=== PATIENT | male | born 1950 | race Two or more races ===

== ENCOUNTER 2017-03-18 10:36 | Inpatient (IN) | payer SELFPAY ==
[~2017-03-18] VITALS: Ht 167.6 cm; Wt 74.6 kg
--- NOTE | 2017-03-18 10:36 | NUR ---
BBRA 102 FROM [facility] FOR NAUSEA/VOMITING SINCE THIS AM. PER PT VOMITED X 5 TIMES TODAY. RR EVEN AND UNLABORED. DR DHALIWAL AT BEDSIDE FOR EVAL.
[2017-03-18] MEDS ORDERED: ONDANSETRON HCL/PF 4 MG/2 ML VIAL ONE (10:55)
[2017-03-18] MEDS ORDERED: ASPIRIN 325 MG TABLET ONE (10:55)
[2017-03-18] MEDS ORDERED: ASPIRIN 325 MG TABLET PO ONE (11:00)
[2017-03-18] MEDS ORDERED: ONDANSETRON HCL/PF 4 MG/2 ML VIAL IVP ONE (11:00)
--- NOTE | 2017-03-18 11:00 | NUR ---
EKG IN PROGRESS
[2017-03-18 11:22] LABS: BASOPHILS % (AUTO) 0.3 % (0.0-2.0); EOSINOPHILS # (AUTO) 0.2 /CMM (0.0-0.7); EOSINOPHILS % (AUTO) 2.2 % (0.0-6.0); HEMATOCRIT 45 % (39-51); HEMOGLOBIN 14.8 g/dL (13.5-17.5); LYMPHOCYTES % (AUTO) 26.5 % (20.0-44.0); MEAN CORPUSCULAR HEMOGLOBIN 31 PG (26.0-33.0); MEAN CORPUSCULAR HGB CONC 33 g/dl (31.0-36.0); MEAN CORPUSCULAR VOLUME 92 fL (80-96); MONOCYTES # (AUTO) 0.5 /CMM (0.1-1.30); MONOCYTES % (AUTO) 7.1 % (2.0-12.0); NEUTROPHILS # (AUTO) 4.9 /CMM (1.8-8.9); NEUTROPHILS % (AUTO) 63.9 % (43.0-81.0); PLATELET COUNT (AUTO) 210 /CMM (150-450); RDW COEFFICIENT OF VARIATION 11.4 (11.5-15.0); RED BLOOD CELL COUNT(AUTO) 4.84 MIL/uL (4.5-6.0); WHITE BLOOD COUNT (AUTO) 7.6 K/uL (4.3-11.0)
[2017-03-18 11:31] LABS: CALCIUM, SERUM 8.4 mg/dL (8.5-10.1); CARBON DIOXIDE 26 mmol/L (21-32); CHLORIDE 106 mmol/L (98-107); CREATININE 0.9 mg/dL (0.6-1.3); GLUCOSE 143 mg/dL (74-106); POTASSIUM 3.6 mmol/L (3.5-5.1); SODIUM SERUM 142 mmol/L (136-145); UREA NITROGEN, BLOOD 9 mg/dL (7-18)
[2017-03-18 11:34] LABS: INR 1.03 (0.87-1.13); PROTHROMBIN TIME 10.7 SECS (9.5-12.7)
[2017-03-18 11:40] LABS: TROPONIN I < 0.017 ng/mL (0.00-0.056)
[2017-03-18 11:44] LABS: ALANINE AMINOTRANSFERASE 18 U/L (12-78); ALBUMIN 3.9 g/dL (3.4-5.0); ALKALINE PHOSPHATASE 58 U/L (46-116); ASPARTATE AMINOTRANSFERASE 22 U/L (15-37); B-TYPE NATRIURETIC PEPTIDE 151 PG/ML (0-125); BILIRUBIN,DIRECT 0.1 mg/dL (0.0-0.2); BILIRUBIN,TOTAL 1.1 mg/dL (0.2-1.0); TOTAL PROTEIN, SERUM 7.5 g/dL (6.4-8.2)
[2017-03-18] MEDS ORDERED: PROMETHAZINE HCL 25 MG/ML AMPUL ONE (12:05)
--- NOTE | 2017-03-18 12:09 | NUR ---
VERBAL ORDER FROM DR MADHURI JEONG 12.5 IVP GIVEN
--- NOTE | 2017-03-18 12:26 | NUR ---
PT BACK FROM CT
--- NOTE | 2017-03-18 13:15 | NUR ---
PAGED DR ARCE FOR PANEL ADMISSION
[2017-03-18] MEDS ORDERED: FUROSEMIDE 40 MG/4 ML VIAL ONE (13:16)
[2017-03-18] MEDS ORDERED: FUROSEMIDE 40 MG/4 ML VIAL IV ONE (13:30)
--- NOTE | 2017-03-18 13:50 | NUR ---
REPORT GIVEN TO HAYES BRIANPAPER BUNDLER DR ARCE ADMITTING DX CHF DIZZINESS AND VOMITING. TRANSFER VIA ACLS PROTOCOL.
[2017-03-18] MEDS ORDERED: Z GUARD REMEDY 2 OZ OINT TP PRN (14:00)
[2017-03-18] MEDS ORDERED: MAGNESIUM HYDROXIDE 30 ML UDC PO PRN (14:00)
[2017-03-18] MEDS ORDERED: HYDROCODONE/APAP 5/325MG 1 EACH TABLET PO PRN (14:00)
[2017-03-18] MEDS ORDERED: PANTOPRAZOLE 40 MG VIAL IV SCH (14:00)
[2017-03-18] MEDS ORDERED: ONDANSETRON HCL/PF 4 MG/2 ML VIAL IVP PRN (14:00)
[2017-03-18] MEDS ORDERED: MAG HYDROX/AL HYDROX/SIMETH 30 ML UDC PO PRN (14:00)
[2017-03-18] MEDS ORDERED: ACETAMINOPHEN 325 MG TABLET PO PRN (14:00)
[2017-03-18] MEDS ORDERED: MECLIZINE HCL 12.5 MG TABLET PO ONE (14:00)
[2017-03-18] MEDS ORDERED: ZOLPIDEM TARTRATE 5 MG TABLET PO PRN (14:00)
[2017-03-18] MEDS ORDERED: PROMETHAZINE HCL 25 MG/ML AMPUL IV ONE (14:00)
--- NOTE | 2017-03-18 14:15 | NUR ---
COVER OPERATOR NOTES RECEIVED PATIENT VERBALLY RESPONSIVE, IN NO APPARENT DISTRESS. DENIES PAIN, COMPLAINING OF DIZZINESS.IV LINE ON RIGHT WRIST PATENT. NO SKIN ALTERATIONS NOTED, ALL NEEDS MET, ORIENTED TO ROOM AND UNIT, CALL LIGHT WITHIN REACH. PATIENTS BELONGINGS LIST REVIEWED, PER PATIENT HE IS MISSING A WHITE T SHIRT. CALLED ER, SHIRT NOT ON THE ROOM PATIENT STATES ITS OK IF HE DOESN'T HAVE THE SHIRT.
[2017-03-18] MEDS: IV NS 0.9% 1,000 ML IV PRN (14:42)
[2017-03-18] MEDS: PANTOPRAZOLE 40 MG TABLET.DR PO SCH (14:43)
[2017-03-18 16:00] VITALS: BP 146/65
--- NOTE | 2017-03-18 18:49 | NUR ---
SIGHT MOUNTER CLOSING NOTES PATIENT IN BED, VERBALLY RESPONSIVE,NO APPARENT DISTRESS NOTED. PATIENT DENIES PAIN, DENIES DIZZINESS. ON 2L O2 VIA NC, DENIES SOB AT THIS TIME. ON TELE MONITORING SR 68. IV LINE ON LEFT HAND PATENT, INFUSING NS AT 75ML/HR. ALL DUE MEDS GIVEN, ALL NEEDS MET. WILL ENDORSE CARE TO PM SHIFT.
[2017-03-18 20:00] VITALS: BP 136/69
--- NOTE | 2017-03-18 20:00 | NUR ---
BASKET MAKER NOTE PT IN BED AWAKE. A/O X 3, NO SOB, NO DISTRESS OR DISCOMFORT NOTED. DENIES PAIN. IVF NS @ 75 ML/HR INFUSING WELL. NO S/S OF INFILTRATION NOTED. ON TELE SR WITH BBB HR 66. PT DENIES ANY N/V AT THIS TIME. AMBULATED IN HALLWAY WITH STEADY GAIT. ALL NEEDS ATTENDED. SIDE RAILS UP X 2 AND CALL LIGHT WITHIN REACH. CONTINUE TO MONITOR HIM. VSS.
[2017-03-18] MEDS ORDERED: ENOXAPARIN SODIUM 40 MG/0.4 ML DISP.SYRIN SQ SCH (21:00)
[2017-03-19] VITALS: BP 141/68
[2017-03-19 04:00] VITALS: BP 127/65
--- NOTE | 2017-03-19 04:00 | NUR ---
LIQUOR GRINDING MILL OPERATOR NOTE PT IN BED ASLEEP, AROUSABLE. NO DISTRESS OR DISCOMFORT NOTED. IVF INFUSING WELL, NO S/S OF INFILTRATION NOTED.
[2017-03-19] MEDS: IV NS 0.9% 1,000 ML IV PRN (04:24)
--- NOTE | 2017-03-19 06:39 | NUR ---
COMMERCIAL FLOOR COVERING INSTALLER NOTE PT IN BED ASLEEP, AROUSABLE. NO DISTRESS OR DISCOMFORT NOTED. NO S/S OF PAIN NOTED. IVF INFUSING WELL, NO S/S OF INFILTRATION NOTED. SIDE RAILS UP X 2 AND CALL LIGHT WITHIN REACH. ON TELE SB WITH BBB HR 58. WILL ENDORSE TO DAY SHIFT NURSE FOR CONTINUE TO CARE.
[2017-03-19 07:23] LABS: ALBUMIN 3.4 g/dL (3.4-5.0); BILIRUBIN,TOTAL 1.4 mg/dL (0.2-1.0); CALCIUM, SERUM 8.6 mg/dL (8.5-10.1); CREATININE 0.9 mg/dL (0.6-1.3); MAGNESIUM 1.8 mg/dL (1.8-2.4); PHOSPHORUS 3.5 mg/dL (2.5-4.9); POTASSIUM 3.9 mmol/L (3.5-5.1); TOTAL PROTEIN, SERUM 6.7 g/dL (6.4-8.2)
[2017-03-19 07:27] LABS: BASOPHILS % (AUTO) 0.4 % (0.0-2.0); EOSINOPHILS # (AUTO) 0.1 /CMM (0.0-0.7); EOSINOPHILS % (AUTO) 1.4 % (0.0-6.0); HEMATOCRIT 43 % (39-51); HEMOGLOBIN 14.6 g/dL (13.5-17.5); LYMPHOCYTES # (AUTO) 2.3 /CMM (0.8-4.8); LYMPHOCYTES % (AUTO) 25.7 % (20.0-44.0); MEAN CORPUSCULAR HEMOGLOBIN 32 PG (26.0-33.0); MEAN CORPUSCULAR HGB CONC 34 g/dl (31.0-36.0); MEAN CORPUSCULAR VOLUME 92 fL (80-96); MONOCYTES # (AUTO) 0.6 /CMM (0.1-1.30); MONOCYTES % (AUTO) 6.8 % (2.0-12.0); NEUTROPHILS % (AUTO) 65.7 % (43.0-81.0); PLATELET COUNT (AUTO) 171 /CMM (150-450); RDW COEFFICIENT OF VARIATION 12.3 (11.5-15.0); RED BLOOD CELL COUNT(AUTO) 4.61 MIL/uL (4.5-6.0); WHITE BLOOD COUNT (AUTO) 9.1 K/uL (4.3-11.0)
[2017-03-19 07:29] LABS: THYROID STIMULATING HORMONE 1.041 uIU/mL (0.358-3.74)
--- NOTE | 2017-03-19 07:44 | NUR ---
RN NOTES RECEIVED PT. PT IS STABLE AND SLEEPING IN BED. A/0 X3. PT IS ON O2 VIA NC AT 2L/MIN. TELE MONITOR READS SR AT 66BPM. IV ACCESS LOCATED ON LEFT HAND 18G, RUNNING NS AT 75 ML/HR. SAFETY MEASURES IN PLACE, CALL LIGHT WITHIN REACH. WILL CONTINUE TO MONITOR.
[2017-03-19 08:00] VITALS: BP 136/76
[2017-03-19] MEDS: PANTOPRAZOLE 40 MG TABLET.DR PO SCH (09:00)
[2017-03-19 12:00] VITALS: BP 146/71
--- NOTE | 2017-03-19 12:15 | NUR ---
RN NOTE CALLED DR. ARCE WITH THE 2D ECHO RESULTS FOR PT. DR. ARCE INFORMED.
[2017-03-19 16:00] VITALS: BP 125/69
--- NOTE | 2017-03-19 18:49 | NUR ---
DISCHARGE NOTE PT STABLE. DISCHARGE INSTRUCTIONS PROVIDED, UNDERSTOOD AND VERIFIED THROUGH READ BACK. PRESCRIPTION GIVEN TO PATIENT. IV ACCESS REMOVED. DISCHARGE INSTRUCTIONS SIGNED. PT UNDERSTANDS TO FOLLOW UP WITH PRIMARY PHYSICIAN IN 7 DAYS.
== END 2017-03-19 18:50 | disposition home or self-care (01) | DRG 73 ==
LOC: ER 10:39 → TELE 13:58
PROVIDERS: ADMIT Internal Medicine; ATTEND Internal Medicine
DX: G90.8 Other disorders of autonomic nervous system (principal); I50.33 Acute on chronic diastolic (congestive) heart failure; R17 Unspecified jaundice; I11.0 Hypertensive heart disease with heart failure; I25.10 Atherosclerotic heart disease of native coronary artery without angina pectoris; Z95.1 Presence of aortocoronary bypass graft; R73.9 Hyperglycemia, unspecified; E80.6 Other disorders of bilirubin metabolism
CPT/HCPCS: 36415; 70450-TC; 71010-TC; 76705-TC; 80048-TC; 80053-TC; 80061-TC; 80076-TC; 82746; 83690-TC; 83735-TC; 83880; 84100-TC; 84443-TC; 84484-TC; 85025-TC; 85730-TC; 87081-TC; 93307-TC; 93880-TC; A4606; J1650; J1940; J2405; J2550; J7030; J8597; Z7610